=== PATIENT | female | born 1955 | race Caucasian/White ===

== ENCOUNTER 2018-06-08 09:27 | Emergency (ER) | payer MEDICAID ==
[~2018-06-08] VITALS: Ht 162.6 cm; Wt 59.0 kg
[2018-06-08] MEDS ORDERED: NKM (09:30)
--- NOTE | 2018-06-08 09:46 | Emergency Room Report ---
History of Present Illness General Chief Complaint: Multiple Trauma/Fall Source: Patient Present Illness HPI 63yo F with h/o anxiety, on no meds at all, p/w B/L hip and pelvic pain s/p fall down 2 steps, when she tripped on wet pavement yesterday, pain has been moderate, constant, and worse with weight-bearing. Patient scraped her knee, since she fell forward and to the left. Deneis head injury, neck pain, loss of consciousness, dizziness, any other complaints. Initially refused any meds, but then agreed to ibuprofen and tetanus booster. Allergies: Coded Allergies: No Known Allergies (Unverified , 06/08/18) Patient History Past Medical History: see triage record Reviewed Nursing Documentation: PMH: Agreed; PSxH: Agreed Review of Systems All Other Systems: negative except mentioned in HPI Physical Exam Vital Signs Date Time Temp Pulse Resp B/P (MAP) Pulse Ox O2 Delivery O2 Flow Rate FiO2 06/08/18 09:27 97.7 74 16 142/86 99 Room Air Sp02 EP Interpretation: reviewed, normal General Appearance: no apparent distress, alert, non-toxic Head: normocephalic Eyes: bilateral eye normal inspection, bilateral eye PERRL, bilateral eye EOMI ENT: normal ENT inspection, hearing grossly normal, normal pharynx, no angioedema, normal voice, moist mucus membranes Neck: normal inspection, full range of motion, supple, supple/symm/no masses Respiratory: chest non-tender, lungs clear, normal breath sounds, chest symmetrical, palpation of chest normal Cardiovascular #1: normal peripheral pulses, regular rate, rhythm Cardiovascular #2: 2+ radial (R), 2+ radial (L) Gastrointestinal: normal inspection, non tender, soft, no mass, no guarding, no rebound Rectal: deferred Genitourinary: normal inspection, no CVA tenderness Musculoskeletal: back normal, gait/station normal, normal range of motion, non- tender, no calf tenderness, other - no ROM limitations, no C-, T-, or L-spine bony tenderness, or stepoffs Neurologic: alert, responsive, 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 Childs, has assessed and agrees that patient is medically stable for discharge to an outpatient disposition. Diagnostic Impression: Primary Impression: Fall ER Course Patient with stable pelvis, FROM all extremity joints, no bony tenderness, ordered pelvis xr, but patient left before getting the XR, as well as before getting ibuprofen, local wound care, or tdap. She left without warning and eloped. I think she came in for reassurance and when she got that she was no longer interested in staying for xr's or medication. Last Vital Signs Date Time Temp Pulse Resp B/P (MAP) Pulse Ox O2 Delivery O2 Flow Rate FiO2 06/08/18 09:27 97.7 74 16 142/86 99 Room Air Disposition: ELOPED Condition: Stable SIVA CHILDS M.D Jun 08, 2018 09:46
[2018-06-08] MEDS: Tetanus/Diptheria/Pertussis Vaccine 0.5ml Syr IM ONE ×2 (09:51→10:00)
[2018-06-08 10:28] VITALS: BP 170/75
--- NOTE | 2018-06-08 10:30 | Diagnostic Imaging Report ---
Indication: Pain, status post fall on left side Technique: One view of the pelvis Comparison: none Findings: There is slight irregularity of the right medial pubis immediately adjacent to the pubic symphysis, with what appears to be a triangular bony opacity superiorly, and a linear lucency parallel to the pubic symphysis. There is also there is a suggestion age-indeterminate fracture deformity of left inferior pubic ramus. No other definite acute fractures. No hip fracture. No dislocations. The joint spaces are preserved. Impression: Possible medial pubic ramus fracture on the right. Correlate with clinical findings Age indeterminate left inferior pubic ramus fracture deformity. Findings discussed by phone with Dr. Veliz in the emergency room at the time of interpretation
[2018-06-08] MEDS ORDERED: Bacitracin Oint UD TOPIC ONE (10:45)
[2018-06-08] MEDS ORDERED: IBUPROFEN600 MG ORAL (11:07)
[2018-06-08 12:18] VITALS: BP 147/80
== END 2018-06-08 12:17 | disposition home or self-care (01) ==
LOC: EDBD 09:27 → EMR 09:58
DX: M25.552 Pain in left hip (principal); M25.551 Pain in right hip; R10.2 Pelvic and perineal pain; W10.9XXA Fall (on) (from) unspecified stairs and steps, initial encounter; Y92.59 Other trade areas as the place of occurrence of the external cause
CPT/HCPCS: 72170; 90471; 90715; 99283